=== PATIENT | female | born 2000 | race American Indian/Alaskan Native ===

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

== ENCOUNTER 2018-09-26 23:09 | Emergency (ER) | payer MEDICAID, OTHER ==
[2018-09-26 23:33] VITALS: BP 132/72
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
[2018-09-26 23:43] LABS: Basophils % (Auto) 0.4 % (0.0-1.8); Eosinophils # (Auto) 0.1 K/mm3 (0.0-0.4); Eosinophils % (Auto) 2.5 % (0.0-4.3); Hematocrit 37.4 % (30.3-42.9); Hemoglobin 12.5 gm/dl (10.1-14.3); Lymphocytes # (Auto) 2.3 K/mm3 (1.2-5.4); Lymphocytes % (Auto) 39.3 % (13.4-35.0); Mean Corpuscular HGB Conc 34 % (30-34); Mean Corpuscular Volume 91 fl (79-97); Monocytes # (Auto) 0.4 K/mm3 (0.0-0.8); Monocytes % (Auto) 7.2 % (0.0-7.3); Platelet Count 344 K/mm3 (140-440)
[2018-09-26 23:54] LABS: BUN/Creatinine Ratio 17; Blood Urea Nitrogen 12 mg/dL (7-17); Calcium 8.6 mg/dL (8.4-10.2); Hemolysis Index 2
[2018-09-27] MEDS ORDERED: TORADOL IM ONE (00:03)
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
== END 2018-09-27 02:32 | disposition home or self-care (01) ==
LOC: ED 23:09
DX: M54.5 Low back pain (principal); J45.909 Unspecified asthma, uncomplicated; F17.200 Nicotine dependence, unspecified, uncomplicated; F12.10 Cannabis abuse, uncomplicated; V89.2XXA Person injured in unspecified motor-vehicle accident, traffic, initial encounter; Y93.89 Activity, other specified; Y99.8 Other external cause status; Y92.410 Unspecified street and highway as the place of occurrence of the external cause
CPT/HCPCS: 36415; 72131; 80048; 84703; 85025; 96372; 99284; J1885

== ENCOUNTER 2019-10-17 20:54 | Outpatient (CLI) | payer MEDICAID ==
[2019-10-17] MEDS ORDERED: BUTALB/ACETAMINOPHEN/CAFFEINE TAB PO ONE (21:44)
[2019-10-17 21:58] VITALS: BP 129/61
== END 2019-10-17 22:15 | disposition home or self-care (01) ==
LOC: TRG 20:54
PROVIDERS: ATTEND Obstetrics & Gynecology
DX: O26.893 Other specified pregnancy related conditions, third trimester (principal); R51 Headache; Z3A.22 22 weeks gestation of pregnancy
CPT/HCPCS: 87400

== ENCOUNTER 2019-11-07 03:10 | Outpatient (CLI) | payer MEDICAID ==
[2019-11-07 05:13] VITALS: BP 138/64
== END 2019-11-07 05:10 | disposition home or self-care (01) ==
LOC: TRG 03:10
PROVIDERS: ATTEND Obstetrics & Gynecology
DX: O26.892 Other specified pregnancy related conditions, second trimester (principal); R10.9 Unspecified abdominal pain; R51 Headache; Z3A.25 25 weeks gestation of pregnancy

== ENCOUNTER 2019-11-26 14:12 | Outpatient (CLI) | payer MEDICAID ==
[2019-11-26 14:48] VITALS: BP 123/63
[2019-11-26] MEDS ORDERED: LACTATED RINGERS 1,000 ML IV SCH (15:00)
[2019-11-26] MEDS ORDERED: ACETAMINOPHEN 500 MG TAB PO ONE (15:30)
[2019-11-26 15:39] LABS: Bacteria,Urine 2+ /HPF (Negative); Bilirubin,Urine NEG (Negative); Blood,Urine NEG (Negative); Color,Urine Yellow (Yellow); Mucus,Urine FEW /HPF; Protein,Urine <15 mg/dL mg/dL (Negative); Urobilinogen,Urine < 2.0 mg/dL (<2.0)
== END 2019-11-26 16:44 | disposition home or self-care (01) ==
LOC: TRG 14:12
PROVIDERS: ATTEND Obstetrics & Gynecology
DX: O47.02 False labor before 37 completed weeks of gestation, second trimester (principal); Z3A.27 27 weeks gestation of pregnancy
CPT/HCPCS: 81001

== ENCOUNTER 2020-01-22 13:35 | Outpatient (CLI) | payer MEDICAID ==
[2020-01-25 11:59] VITALS: BP 108/56
== END 2020-01-22 16:33 | disposition home or self-care (01) ==
LOC: TRG 13:35 → APU 14:08 → TRG 16:33
PROVIDERS: ATTEND Obstetrics & Gynecology
DX: O26.893 Other specified pregnancy related conditions, third trimester (principal); N89.8 Other specified noninflammatory disorders of vagina; Z3A.35 35 weeks gestation of pregnancy
CPT/HCPCS: 59025

== ENCOUNTER 2020-01-26 16:02 | Outpatient (CLI) | payer MEDICAID ==
[2020-01-26 16:54] LABS: Hematocrit 33.7 % (30.3-42.9); Hemoglobin 11.5 gm/dl (10.1-14.3); Mean Corpuscular HGB Conc 34 % (30-34); Mean Corpuscular Volume 92 fl (79-97); Platelet Count 380 K/mm3 (140-440); Red Blood Count 3.68 M/mm3 (3.65-5.03); Red Cell Distribution Width 13.2 % (13.2-15.2)
[2020-01-26 17:12] LABS: Alanine Aminotransferase 11 units/L (7-56)
[2020-01-26] MEDS ORDERED: LACTATED RINGERS 1,000 ML IV ONE ×2 (18:21→19:30)
[2020-01-26] MEDS ORDERED: ACETAMINOPHEN 500 MG TAB PO ONE (18:21)
[2020-01-26] MEDS ORDERED: PROMETHAZINE 25 MG TAB PO ONE (18:28)
[2020-01-26 18:32] LABS: Bacteria,Urine 1+ /HPF (Negative); Bilirubin,Urine NEG (Negative); Blood,Urine NEG (Negative); Color,Urine Yellow (Yellow); Mucus,Urine 2+ /HPF; Protein,Urine <15 mg/dL mg/dL (Negative); Urobilinogen,Urine < 2.0 mg/dL (<2.0)
--- NOTE | 2020-01-26 18:43 | Event Note ---
Date: 01/26/20 (Elevated BP in office.) Pt is a 19 y.o. that was sent from the clinic d/t an elevated BP. First BP in the office 160/100, 2nd was 122/72. Pt also states that she had a GARCIA for 2 days and has not taken anything for it. BP's in triage 110's-130's/50-70's. Her Pre E labs were normal. Of note she is also having some tachycardia in the 110's. Most likely dehydration. I explained these findings to the patient and she stated that she was having some abdominal pain. Contractions palpated during this triage visit. Explained plan to given fluids and something for pain and sleep and she verbalized understanding. Her cervical exam is closed/thick/hi. Will discharge home if cervical exam remains the same. Will continue to monitor mothers HR while in triage and if they return to normal will send home, if she remains tachy will order EKG before sending home.
[2020-01-26 20:47] LABS: BUN/Creatinine Ratio 12; Blood Urea Nitrogen 6 mg/dL (7-17); Hemolysis Index 18
[2020-01-26 21:18] VITALS: BP 140/71
== END 2020-01-26 21:34 | disposition home or self-care (01) ==
LOC: TRG 16:02 → APU 16:02 → TRG 21:34
PROVIDERS: ATTEND Obstetrics & Gynecology
DX: O10.913 Unspecified pre-existing hypertension complicating pregnancy, third trimester (principal); O62.9 Abnormality of forces of labor, unspecified; O26.893 Other specified pregnancy related conditions, third trimester; R51 Headache; R10.9 Unspecified abdominal pain; R00.0 Tachycardia, unspecified; O99.513 Diseases of the respiratory system complicating pregnancy, third trimester; J45.909 Unspecified asthma, uncomplicated; Z3A.36 36 weeks gestation of pregnancy
CPT/HCPCS: 36415; 59025; 80048; 81001; 82565; 83615; 84450; 84460; 84550; 85027; 93005; 96360; J7120; Q0169

== ENCOUNTER 2020-02-06 23:07 | Inpatient (IN) | payer MEDICAID ==
[2020-02-06] MEDS ORDERED: LACTATED RINGERS 1,000 ML IV SCH (23:45)
[2020-02-06] MEDS ORDERED: OXYTOCIN 20 UNIT/1000ML DRIP 20 UNITS/1,000 ML BAG IV SCH (23:45)
[2020-02-06] MEDS ORDERED: OXYTOCIN DRIP 30 UNITS/500 ML BAG IV SCH ×2 (23:45)
--- NOTE | 2020-02-06 23:56 | History and Physical Report ---
History of Present Illness Date of examination: 02/06/20 (ctx and SROM) History of present illness: EDC Confirmation: 02/20/2020 Gestational Age: 9 2/7 weeks Past History : 2 Living Children: 0 Spont. Ab: 1 # 1 Delivery date: 08/14/2018 Delivery type: SAB Anesthesia type: none Past Medical History: Reviewed history and no changes required: Asthma: last used an inhaler February 2019 childhood asthma, never been intubated. Past Surgical History: Reviewed history and no changes required: negative Past Medical History Anesthesia Complications: negative Anemia: negative Autoimmune Disorder: negative Bleeding Disorder: negative Blood Transfusions: negative Breast Disease: negative Diabetes: negative Heart Disease: negative Hypertension: negative Hepatitis/Liver Disease: negative Kidney Disease/UTI: negative Neurologic/Epilepsy/Migraines: negative Phlebitis/Varicosities: negative Psychiatric: negative Pulmonary Disease/Asthma: negative Thyroid Disease: negative Hospitalizations: negative Surgery (Non-peripheral edp equipment operator): negative Abnormal PAP: negative RALF Exposure: negative Infertility: negative Uterine Anomaly: negative Uterine Surgery (not C/S): negative Other Gynecologic Problems: negative Infection History Hx of STD: none HIV Risk Eval: low risk Hepatitis B Risk Eval: low risk Personal hx. of genital herpes: no Partner hx. of genital herpes: no Rash, Viral, or Febrile illness since last LMP? no Varicella/Chicken Pox Status: Unknown TB Risk: no Genetic History Congenital Heart Defect: Mom: no Dad: unknown Anamaria Disease: Mom: no Dad: unknown Thalassemia Mom: no Dad: unknown Neural Tube Defect Mom: no Dad: unknown Down's Syndrome Mom: no Dad: unknown Domo-Sachs Mom: no Dad: unknown Sickle Cell Disease/Trait Mom: no Dad: unknown Hemophilia Mom: no Dad: unknown Muscular Dystrophy Mom: no Dad: unknown Cystic Fibrosis Mom: no Dad: unknown [place] Chorea Mom: no Dad: unknown Mental Retardation Mom: no Dad: unknown Fragile X Mom: no Dad: unknown Other Genetic/Chromosomal Disorder Mom: no Dad: unknown Child w/other defect Mom: no Dad: unknown Enviromental Exposures Xray Exposure: no Medication, drug, or alcohol use since LMP: no Chemical/Other Exposure: no Exposure to Cat Liter: no Hx of Parvovirus (Fifth Disease): no Occupational Exposure to Children: none Active Medications (reviewed today): None Current Allergies (reviewed today): * BENEDRYL (Critical) * SHELLFISH (Critical) Past History - Obstetrical History Expected Date of Delivery: 02/20/20 Actual Gestation: 38 Week(s) 1 Day(s) : 2 Para: 0 Hx # Term Pregnancies: 0 Number of Pregnancies: 0 Spontaneous Abortions: 1 Induced : 0 Number of Living Children: 0 Medications and Allergies Allergies Allergy/AdvReac Type Severity Reaction Status Date / Time diphenhydramine Allergy Severe Anaphylaxis Verified 02/06/20 23:28 [From Benadryl Allergy] Home Medications Medication Instructions Recorded Confirmed Last Taken Type HYDROcodone/APAP 5-325 [[place] 1 each PO Q6HR PRN #8 tablet 09/27/18 Unknown Rx 5/325] - Vital Signs Vital signs: Vital Signs Temp Pulse Resp BP 97.7 F 104 H 20 137/84 02/06/20 23:13 02/06/20 23:13 02/06/20 23:13 02/06/20 23:13 Temp Pulse Resp BP Pulse Ox 97.7 F 104 H 20 137/84 02/06/20 23:13 02/06/20 23:18 02/06/20 23:13 02/06/20 23:18 - Physical Exam Breasts: Positive: deferred Cardiovascular: Regular rate, Normal S1, Normal S2 Lungs: Positive: Clear to auscultation Abdomen: Positive: normal appearance, soft, normal bowel sounds. Negative: distention, tenderness Genitourinary (Female): Positive: normal external genitalia Vulva: both: normal Vagina: Positive: normal moisture. Negative: discharge Cervix: Negative: lesion, discharge Uterus: Positive: normal size, normal contour Adnexa: both: normal Anus/Rectum: Positive: normal perianal skin, heme negative. Negative: rectal mass, hemorrhoids Extremities: Deep Tendon Reflex Grade: Normal +2 - Obstetrical FHR: category 1 Uterine Contraction Monitor Mode: External Cervical Dilatation: 4.5 (SROM clear fluid) Cervical Effacement Percentage: 70 station: -1 Uterine Contraction Pattern: Irregular Uterine Tone Measurement Phase: Resting Uterine Contraction Intensity: Moderate Results All other labs normal. GBS Negative HBsAg Screen Negative Negative *1 RPR Non Reactive Non Reactive *2 Rubella Antibodies, IgG 1.65 index Immune >0.99 *3 Non-immune <0.90 Equivocal 0.90 - 0.99 Immune >0.99 ABO Grouping O *4 Rh Factor Positive *5 Please note: Prior records for this patient's ABO / Rh type are not available for additional verification. Antibody Screen Negative Negative *6 WBC 10.0 x10E3/uL 3.4-10.8 *7 RBC 4.09 x10E6/uL 3.77-5.28 *8 Hemoglobin 12.5 g/dL 11.1-15.9 *9 Hematocrit 39.0 % 34.0-46.6 *10 MCV 95 fL 79-97 *11 MCH 30.6 pg 26.6-33.0 *12 MCHC 32.1 g/dL 31.5-35.7 *13 RDW 13.4 % 12.3-15.4 *14 Effective September 20, 2019, the RDW pediatric reference interval will be removed and the adult reference interval will be changing to: Female 11.7 - 15.4 Male 11.6 - 15.4 Platelets 285 x10E3/uL 150-450 *15 Neutrophils 74 % Not Estab. *16 Lymphs 21 % Not Estab. *17 Monocytes 3 % Not Estab. *18 Eos 2 % Not Estab. *19 Basos 0 % Not Estab. *20 ! Immature Cells <No Reported Value> *21 Neutrophils (Absolute) [H] 7.4 x10E3/uL 1.4-7.0 *22 Lymphs (Absolute) 2.1 x10E3/uL 0.7-3.1 *23 Monocytes(Absolute) 0.3 x10E3/uL 0.1-0.9 *24 Eos (Absolute) 0.2 x10E3/uL 0.0-0.4 *25 Baso (Absolute) 0.0 x10E3/uL 0.0-0.2 *26 ! Immature Granulocytes 0 % Not Estab. *27 ! Immature Grans (Abs) 0.0 x10E3/uL 0.0-0.1 *28 ! NRBC <No Reported Value> *29 Hematology Comments: <No Reported Value> *30 Tests: (2) 688580 7+Alc-Unbund (328885) ! Amphetamines, Urine Negative ng/mL Xqngfr=4629 *31 Amphetamine test includes Amphetamine and Methamphetamine. Barbiturate Negative ng/mL Cibxhb=400 *32 Benzodiazepines Negative ng/mL Fvhovg=642 *33 Cannabinoid See Final Results ng/mL Cutoff=50 *34 Tests: (3) Cannabinoid Confirmation, Ur (237243) ! Cannabinoid [A] Positive Cutoff=50 *35 ! Carboxy THC GC/MS Conf 148 ng/mL Cutoff=15 *36 Tests: (4) 531659 7+Alc-Unbund (885330) ! Cocaine (Metab.) Negative ng/mL Wbedhl=303 *37 Opiates Negative ng/mL Xgkjud=970 *38 Opiate test includes Codeine and Morphine only. Phencyclidine Negative ng/mL Cutoff=25 *39 ! Ethanol, Urine Negative % Cutoff=0.020 *40 Tests: (5) HB Solu + Rflx Fra (057529) Hemoglobin (Hgb) Solubility Negative Negative *41 Tests: (6) Panel 534359 ([id number]) HIV Screen 4th Generation wRfx Non Reactive Non Reactive *42 Tests: (7) HCV Ab w/Rflx to Verification (347839) ! HCV Ab <0.1 s/co ratio 0.0-0.9 *43 Tests: (8) Comment: (015093) ! Comment: SPRCS *44 Non reactive HCV antibody screen is consistent with no HCV infection, unless recent infection is suspected or other evidence exists to indicate HCV infection. Tests: (9) Urine Culture, Routine (978581) Urine Culture, Routine Final report *45 Tests: (10) Result (262093) ! Result 1 No growth *46 Assessment and Plan 19yo @ 38 weeks Ctx and SROM clear fluid GBS negative Orders in EMR. Anticipate delivery
[2020-02-06] MEDS ORDERED: MINERAL OIL 30 ML ORAL LIQD PO PRN (23:58)
[2020-02-06] MEDS ORDERED: fentaNYL 100 MCG/2 ML INJ IV PRN (23:58)
[2020-02-06] MEDS ORDERED: TERBUTALINE 1 MG/1 ML INJ SUB-Q PRN (23:58)
[2020-02-06] MEDS ORDERED: LIDOCAINE (2%) 20 MG/1 ML VIAL 20 ML MDV INFILTRATI ONE (23:58)
[2020-02-06] MEDS ORDERED: ePHEDrine SULFATE 50 MG/1 ML INJ IV PRN (23:58)
[2020-02-06] MEDS ORDERED: ONDANSETRON 4 MG/2 ML INJ IV PRN (23:58)
[2020-02-07 00:32] LABS: Hematocrit 34.6 % (30.3-42.9); Hemoglobin 11.5 gm/dl (10.1-14.3); Mean Corpuscular HGB Conc 33 % (30-34); Mean Corpuscular Volume 91 fl (79-97); Platelet Count 339 K/mm3 (140-440); Red Blood Count 3.79 M/mm3 (3.65-5.03); Red Cell Distribution Width 13.4 % (13.2-15.2)
[2020-02-07 00:51] LABS: Amphetamine Screen,Urine PRESUMPTIVE NEGATIVE; Benzodiazepines Screen,Urine PRESUMPTIVE NEGATIVE; Cannabinoid Screen,Urine PRESUMPTIVE NEGATIVE; Cocaine Screen,Urine PRESUMPTIVE NEGATIVE; Methadone Screen,Urine PRESUMPTIVE NEGATIVE; Opiate Screen,Urine PRESUMPTIVE NEGATIVE
--- NOTE | 2020-02-07 01:22 | Event Note ---
Date: 02/07/20 (pt c/o out with bad urge to defecate) SVE 4-5,90,-1 P allowed OOB to toilet
--- NOTE | 2020-02-07 02:20 | Progress Note ---
Assessment and Plan pt called out c/o increased pain. SVE 6,100,-1 Internals placed Tachysystole Pit off Fentanyl given Bolus for epidural Will re-eval after epidural - Patient Problems (1) Essential hypertension Onset Date: ~02/07/20 Current Visit: Yes Status: Acute Plan to address problem: PIH labs ordered. Pt denies GARCIA, blurred vision, chest pain. Subjective - Subjective Date of service: 02/07/20 (pt req epidural) Principal diagnosis: IUP@38w Interval history: EDC Confirmation: 02/20/2020 Gestational Age: 9 2/7 weeks Past History : 2 Living Children: 0 Spont. Ab: 1 # 1 Delivery date: 08/14/2018 Delivery type: SAB Anesthesia type: none Past Medical History: Reviewed history and no changes required: Asthma: last used an inhaler February 2019 childhood asthma, never been intubated. Past Surgical History: Reviewed history and no changes required: negative Past Medical History Anesthesia Complications: negative Anemia: negative Autoimmune Disorder: negative Bleeding Disorder: negative Blood Transfusions: negative Breast Disease: negative Diabetes: negative Heart Disease: negative Hypertension: negative Hepatitis/Liver Disease: negative Kidney Disease/UTI: negative Neurologic/Epilepsy/Migraines: negative Phlebitis/Varicosities: negative Psychiatric: negative Pulmonary Disease/Asthma: negative Thyroid Disease: negative Hospitalizations: negative Surgery (Non-wallpaperer helper): negative Abnormal PAP: negative RALF Exposure: negative Infertility: negative Uterine Anomaly: negative Uterine Surgery (not C/S): negative Other Gynecologic Problems: negative Infection History Hx of STD: none HIV Risk Eval: low risk Hepatitis B Risk Eval: low risk Personal hx. of genital herpes: no Partner hx. of genital herpes: no Rash, Viral, or Febrile illness since last LMP? no Varicella/Chicken Pox Status: Unknown TB Risk: no Genetic History Congenital Heart Defect: Mom: no Dad: unknown Anamaria Disease: Mom: no Dad: unknown Thalassemia Mom: no Dad: unknown Neural Tube Defect Mom: no Dad: unknown Down's Syndrome Mom: no Dad: unknown Domo-Sachs Mom: no Dad: unknown Sickle Cell Disease/Trait Mom: no Dad: unknown Hemophilia Mom: no Dad: unknown Muscular Dystrophy Mom: no Dad: unknown Cystic Fibrosis Mom: no Dad: unknown [place] Chorea Mom: no Dad: unknown Mental Retardation Mom: no Dad: unknown Fragile X Mom: no Dad: unknown Other Genetic/Chromosomal Disorder Mom: no Dad: unknown Child w/other defect Mom: no Dad: unknown Enviromental Exposures Xray Exposure: no Medication, drug, or alcohol use since LMP: no Chemical/Other Exposure: no Exposure to Cat Liter: no Hx of Parvovirus (Fifth Disease): no Occupational Exposure to Children: none Active Medications (reviewed today): None Current Allergies (reviewed today): * BENEDRYL (Critical) * SHELLFISH (Critical) Patient reports: movement normal, contractions Objective - Vital Signs Vital Signs: Vital Signs - 12hr 02/06/20 02/06/20 02/07/20 23:13 23:18 01:36 Temperature 97.7 F Pulse Rate 104 H 104 H 96 H Respiratory 20 Rate Blood Pressure 137/84 138/93 Blood Pressure 137/84 [Right] 02/07/20 02:06 Temperature Pulse Rate 110 H Respiratory Rate Blood Pressure 133/89 Blood Pressure [Right] - Exam Breasts: deferred Cardiovascular: Regular rate Lungs: Normal air movement Abdomen: Present: normal appearance, soft. Absent: distention, tenderness Uterus: Present: normal FHR: auscultation normal, category 1 Uterine Contraction Monitor Mode: Internal Cervical Dilatation: 6 (caput) Cervical Effacement Percentage: 100 (internals placed) station: -1 Uterine Contraction Frequency (min): q1-2 Uterine Contraction Duration: 40 Uterine Contraction Pattern: Regular Uterine Tone Measurement Phase: Resting Uterine Contraction Intensity: Moderate Extremities: edema Deep Tendon Reflex Grade: Normal +2 - Labs Labs: Laboratory Results - last 24 hr 02/06/20 02/06/20 02/06/20 23:10 23:50 23:50 WBC 9.8 RBC 3.79 Hgb 11.5 Hct 34.6 MCV 91 MCH 30 MCHC 33 RDW 13.4 Plt Count 339 Urine Opiates Screen Presumptive negative Urine Methadone Screen Presumptive negative Ur Barbiturates Screen Presumptive negative Ur Phencyclidine Scrn Presumptive negative Ur Amphetamines Screen Presumptive negative U Benzodiazepines Scrn Presumptive negative Urine Cocaine Screen Presumptive negative U Marijuana (THC) Screen Presumptive negative Drugs of Abuse Note Disclamer Blood Type O POSITIVE
[2020-02-07 02:39] LABS: Alanine Aminotransferase 9 units/L (7-56)
--- NOTE | 2020-02-07 03:58 | Anesthesia Consultation ---
Anesthesia Consult and Med Hx Date of service: 02/07/20 - Airway Anesthetic Teeth Evaluation: Poor ROM Head & Neck: Adequate Mental/Hyoid Distance: Adequate Mallampati Class: Class III Intubation Access Assessment: Probably Good - Pulmonary Exam CTA: Yes - Cardiac Exam Cardiac Exam: RRR - Pre-Operative Health Status ASA Pre-Surgery Classification: ASA3 Proposed Anesthetic Plan: Epidural - Pulmonary Hx Smoking: No Hx Asthma: Yes (albuterol inhaler, last use before ) Hx Respiratory Symptoms: No SOB: No COPD: No Home Oxygen Therapy: No Hx Pneumonia: No Hx Sleep Apnea: No - Cardiovascular System Hx Hypertension: Yes Hx Coronary Artery Disease: No Hx Heart Attack/AMI: No Hx Angina: No Hx Percutaneous Transluminal Coronary Angioplasty (PTCA): No Hx Cardia Arrhythmia: No Hx Pacemaker: No Hx Internal Defibrillator: No Hx Valvular Heart Disease: No Hx Heart Murmur: No Hx Peripheral Vascular Disease: No - Central Nervous System Hx Neuromuscular Disorder: No Hx Seizures: No CVA: No Hx Back Pain: Yes Hx Psychiatric Problems: No - Gastrointestinal Hx Ulcer: No Hx Gastroesophageal Reflux Disease: Yes - Endocrine Hx Renal Disease: No Hx End Stage Renal Disease: No Hx Cirrhosis: No Hx Liver Disease: No Hx Insulin Dependent Diabetes: No Hx Non-Insulin Dependent Diabetes: No Hx Thyroid Disease: No Hx Hypothyroidism: No Hx Hyperthyroidism: No - Hematic Hx Anemia: No Hx Sickle Cell Disease: No - Other Systems Hx Alcohol Use: No Hx Substance Use: No Hx Cancer: Yes
--- NOTE | 2020-02-07 03:59 | Progress Note ---
Labor Epidural - Labor Epidural Start Time: 03:30 Stop Time: 03:42 Performed by:: ELIA VICK Procedure: Patient is requesting combined spinal epidural for labor and pain. H&P, labs were reviewed. All questions and concerns were answered. Informed consent was obtained. Timeout performed. Patient in sitting position on side of bed. Sterile prep and drape was performed. [3] mL 1% lidocaine skin wheal at L [3]-L [4]. 18-gauge Touhy epidural needle advanced to [id number] using air technique, [8cm]. 27-gauge spinal needle advanced [clear positive free- flowing] CSF. spinal dose of [Precedex 10 mcg]. Epidural catheter advanced to [12] cm. [Negative] Aspiration, [negative] test dose. Sterile dressing applied. Patient tolerated procedure well.
[2020-02-07] MEDS ORDERED: fentaNYL-BUPIV 2 MCG/ML-0.125% 200 MCG/100 ML BAG EPIDURAL ONE (05:23)
[2020-02-07] MEDS ORDERED: DEXMEDETOMIDINE 200 MCG/2 ML VIAL IV ONE ×3 (05:25→08:17)
[2020-02-07] MEDS ORDERED: NALOXONE 2 MG/2 ML INJ IV PRN (05:26)
[2020-02-07] MEDS ORDERED: ePHEDrine SULFATE 50 MG/1 ML INJ IV PRN (05:26)
[2020-02-07] MEDS ORDERED: BUPIVACAINE/PF (0.25%) 2.5 MG/ML 10 ML VIAL INFILTRATI ONE (05:31)
[2020-02-07] MEDS ORDERED: fentaNYL-BUPIV 2 MCG/ML-0.125% 200 MCG/100 ML BAG EPIDURAL SCH (06:00)
[2020-02-07] MEDS ORDERED: METOCLOPRAMIDE 10 MG/2 ML INJ IV ONE (06:55)
[2020-02-07] MEDS ORDERED: BICITRA ORAL LIQD 30ML PO ONE (06:55)
[2020-02-07] MEDS ORDERED: FAMOTIDINE 20 MG/2 ML INJ IV ONE (06:55)
--- NOTE | 2020-02-07 06:55 | Progress Note ---
Assessment and Plan No cervical chg X several hours Cat 2 strip variable decels. Operative intervention exp to pt. All questions addressed. Risk of damage to surrounding organs need for transfusion and c/s with future pregnancies. Consents signed. Dr Rufus beatty. All orders in chart - Patient Problems (1) Essential hypertension Onset Date: ~02/07/20 Current Visit: Yes Status: Acute Subjective - Subjective Date of service: 02/07/20 (variable decel noted) Principal diagnosis: IUP@38w Interval history: EDC Confirmation: 02/20/2020 Gestational Age: 9 2/7 weeks Past History : 2 Living Children: 0 Spont. Ab: 1 # 1 Delivery date: 08/14/2018 Delivery type: SAB Anesthesia type: none Past Medical History: Reviewed history and no changes required: Asthma: last used an inhaler February 2019 childhood asthma, never been intubated. Past Surgical History: Reviewed history and no changes required: negative Past Medical History Anesthesia Complications: negative Anemia: negative Autoimmune Disorder: negative Bleeding Disorder: negative Blood Transfusions: negative Breast Disease: negative Diabetes: negative Heart Disease: negative Hypertension: negative Hepatitis/Liver Disease: negative Kidney Disease/UTI: negative Neurologic/Epilepsy/Migraines: negative Phlebitis/Varicosities: negative Psychiatric: negative Pulmonary Disease/Asthma: negative Thyroid Disease: negative Hospitalizations: negative Surgery (Non-bonded strand operator): negative Abnormal PAP: negative RALF Exposure: negative Infertility: negative Uterine Anomaly: negative Uterine Surgery (not C/S): negative Other Gynecologic Problems: negative Infection History Hx of STD: none HIV Risk Eval: low risk Hepatitis B Risk Eval: low risk Personal hx. of genital herpes: no Partner hx. of genital herpes: no Rash, Viral, or Febrile illness since last LMP? no Varicella/Chicken Pox Status: Unknown TB Risk: no Genetic History Congenital Heart Defect: Mom: no Dad: unknown [place] Disease: Mom: no Dad: unknown Thalassemia Mom: no Dad: unknown Neural Tube Defect Mom: no Dad: unknown Down's Syndrome Mom: no Dad: unknown Domo-Sachs Mom: no Dad: unknown Sickle Cell Disease/Trait Mom: no Dad: unknown Hemophilia Mom: no Dad: unknown Muscular Dystrophy Mom: no Dad: unknown Cystic Fibrosis Mom: no Dad: unknown [place] Chorea Mom: no Dad: unknown Mental Retardation Mom: no Dad: unknown Fragile X Mom: no Dad: unknown Other Genetic/Chromosomal Disorder Mom: no Dad: unknown Child w/other defect Mom: no Dad: unknown Enviromental Exposures Xray Exposure: no Medication, drug, or alcohol use since LMP: no Chemical/Other Exposure: no Exposure to Cat Liter: no Hx of Parvovirus (Fifth Disease): no Occupational Exposure to Children: none Active Medications (reviewed today): None Current Allergies (reviewed today): * BENEDRYL (Critical) * SHELLFISH (Critical) Patient reports: movement normal, contractions Objective - Vital Signs Vital Signs: Vital Signs - 12hr 02/06/20 02/06/20 02/07/20 23:13 23:18 01:36 Temperature 97.7 F Pulse Rate 104 H 104 H 96 H Respiratory 20 Rate Blood Pressure 137/84 138/93 Blood Pressure 137/84 [Right] O2 Sat by Pulse Oximetry 02/07/20 02/07/20 02/07/20 02:06 02:37 03:07 Temperature Pulse Rate 110 H 95 H 110 H Respiratory Rate Blood Pressure 133/89 138/58 Blood Pressure [Right] O2 Sat by Pulse 98 Oximetry 02/07/20 02/07/20 02/07/20 03:08 03:12 03:17 Temperature Pulse Rate 115 H 119 H 121 H Respiratory Rate Blood Pressure 122/61 Blood Pressure [Right] O2 Sat by Pulse 100 99 Oximetry 02/07/20 02/07/20 02/07/20 03:22 03:27 03:28 Temperature Pulse Rate 117 H 125 H Respiratory Rate Blood Pressure Blood Pressure [Right] O2 Sat by Pulse 100 100 88 Oximetry 02/07/20 02/07/20 02/07/20 03:29 03:32 03:33 Temperature Pulse Rate 121 H 109 H 122 H Respiratory Rate Blood Pressure 136/72 135/84 Blood Pressure [Right] O2 Sat by Pulse 95 Oximetry 02/07/20 02/07/20 02/07/20 03:35 03:37 03:38 Temperature Pulse Rate 119 H 114 H Respiratory Rate Blood Pressure 132/93 129/80 Blood Pressure [Right] O2 Sat by Pulse 99 Oximetry 02/07/20 02/07/20 02/07/20 03:41 03:42 03:47 Temperature Pulse Rate 107 H 114 H 98 H Respiratory Rate Blood Pressure Blood Pressure [Right] O2 Sat by Pulse 84 99 91 Oximetry 05/02/07/20 02/07/20 03:50 03:52 03:56 Temperature Pulse Rate 113 H 123 H 134 H Respiratory Rate Blood Pressure 126/58 117/57 Blood Pressure [Right] O2 Sat by Pulse 100 Oximetry 02/07/20 02/07/20 02/07/20 03:57 03:59 04:02 Temperature Pulse Rate 125 H 111 H 110 H Respiratory Rate Blood Pressure 107/50 99/48 Blood Pressure [Right] O2 Sat by Pulse 99 99 Oximetry 02/07/20 02/07/20 02/07/20 04:04 04:05 04:07 Temperature Pulse Rate 114 H 114 H 106 H Respiratory Rate Blood Pressure 95/47 125/58 Blood Pressure [Right] O2 Sat by Pulse 99 Oximetry 02/07/20 02/07/20 02/07/20 04:08 04:11 04:12 Temperature Pulse Rate 109 H 105 H 109 H Respiratory Rate Blood Pressure 111/56 110/50 Blood Pressure [Right] O2 Sat by Pulse 100 Oximetry 02/07/20 02/07/20 02/07/20 04:14 04:17 04:20 Temperature Pulse Rate 104 H 109 H 109 H Respiratory Rate Blood Pressure 117/57 131/66 128/65 Blood Pressure [Right] O2 Sat by Pulse 99 94 Oximetry 02/07/20 02/07/20 02/07/20 04:22 04:23 04:27 Temperature Pulse Rate 110 H 115 H 105 H Respiratory Rate Blood Pressure 124/67 Blood Pressure [Right] O2 Sat by Pulse 100 100 Oximetry 02/07/20 02/07/20 02/07/20 04:32 04:37 04:42 Temperature Pulse Rate 103 H 105 H 112 H Respiratory Rate Blood Pressure Blood Pressure [Right] O2 Sat by Pulse 100 100 99 Oximetry 02/07/20 02/07/20 02/07/20 04:47 04:52 04:55 Temperature Pulse Rate 105 H 110 H 104 H Respiratory Rate Blood Pressure 134/72 Blood Pressure [Right] O2 Sat by Pulse 100 100 Oximetry 02/07/20 02/07/20 02/07/20 04:57 05:02 05:03 Temperature Pulse Rate 114 H 112 H 113 H Respiratory Rate Blood Pressure Blood Pressure [Right] O2 Sat by Pulse 96 97 91 Oximetry 05/25/20 05/25/20 05/25/20 05:07 05:10 05:12 Temperature Pulse Rate 104 H 105 H 45 L Respiratory Rate Blood Pressure Blood Pressure [Right] O2 Sat by Pulse 100 86 87 Oximetry 02/07/20 02/07/20 02/07/20 05:15 05:17 05:25 Temperature Pulse Rate 120 H 109 H 111 H Respiratory Rate Blood Pressure 110/63 Blood Pressure [Right] O2 Sat by Pulse 85 99 Oximetry 02/07/20 02/07/20 02/07/20 05:34 05:56 06:02 Temperature Pulse Rate 126 H 122 H 103 H Respiratory Rate Blood Pressure 110/72 139/75 139/70 Blood Pressure [Right] O2 Sat by Pulse Oximetry 02/07/20 06:24 Temperature Pulse Rate 102 H Respiratory Rate Blood Pressure 133/60 Blood Pressure [Right] O2 Sat by Pulse Oximetry - Exam Breasts: deferred Cardiovascular: Regular rate Lungs: Clear to auscultation Abdomen: Present: normal appearance, soft. Absent: distention, tenderness Uterus: Present: normal FHR: auscultation normal, category 2 Uterine Contraction Monitor Mode: Internal Cervical Dilatation: 8 Cervical Effacement Percentage: 100 station: -1 Uterine Contraction Pattern: Regular Uterine Tone Measurement Phase: Resting Uterine Contraction Intensity: Moderate Extremities: edema Deep Tendon Reflex Grade: Normal +2 - Labs Labs: Abnormal Labs 02/07/20 00:00 Creatinine 0.5 L Lactate Dehydrogenase 220 H Laboratory Results - last 24 hr 02/06/20 02/06/20 02/06/20 23:10 23:50 23:50 WBC 9.8 RBC 3.79 Hgb 11.5 Hct 34.6 MCV 91 MCH 30 MCHC 33 RDW 13.4 Plt Count 339 Creatinine Estimated GFR Uric Acid AST ALT Lactate Dehydrogenase Urine Opiates Screen Presumptive negative Urine Methadone Screen Presumptive negative Ur Barbiturates Screen Presumptive negative Ur Phencyclidine Scrn Presumptive negative Ur Amphetamines Screen Presumptive negative U Benzodiazepines Scrn Presumptive negative Urine Cocaine Screen Presumptive negative U Marijuana (THC) Screen Presumptive negative Drugs of Abuse Note Disclamer Blood Type O POSITIVE Antibody Screen Negative 02/07/20 00:00 WBC RBC Hgb Hct MCV MCH MCHC RDW Plt Count Creatinine 0.5 L Estimated GFR > 60 Uric Acid 4.0 AST 14 ALT 9 Lactate Dehydrogenase 220 H Urine Opiates Screen Urine Methadone Screen Ur Barbiturates Screen Ur Phencyclidine Scrn Ur Amphetamines Screen U Benzodiazepines Scrn Urine Cocaine Screen U Marijuana (THC) Screen Drugs of Abuse Note Blood Type Antibody Screen
[2020-02-07] MEDS ORDERED: ceFAZolin/Water 2 GM/20 ML 2 GM/20 ML SYRINGE IV NR (07:00)
[2020-02-07] MEDS ORDERED: OXYTOCIN 20 UNIT/1000ML DRIP 20 UNITS/1,000 ML BAG IV SCH ×2 (07:00→11:35)
[2020-02-07] MEDS ORDERED: LACTATED RINGERS 1,000 ML IV SCH (07:00)
[2020-02-07 07:04] LABS: Bilirubin,Urine NEG (Negative); Blood,Urine NEG (Negative); Color,Urine Yellow (Yellow); Mucus,Urine 3+ /HPF; Protein,Urine <15 mg/dL mg/dL (Negative); Urobilinogen,Urine < 2.0 mg/dL (<2.0)
[2020-02-07] MEDS ORDERED: BUPIVACAINE/PF (0.5%) 5 MG/1 ML 30 ML VIAL INFILTRATI ONE (07:54)
[2020-02-07] MEDS ORDERED: dexAMETHasone 20 MG/5 ML VIAL ONE (07:54)
[2020-02-07] MEDS ORDERED: KETOROLAC 30 MG/1 ML INJ ONE (07:54)
[2020-02-07] MEDS ORDERED: LIDOCAINE 2%/EPINEPHRINE 1:200,000 VIAL (20 ML) INFILTRATI ONE (07:54)
[2020-02-07] MEDS ORDERED: WATER FOR IRRIG STERILE 1,500 ML BOTTLE IR ONE (08:00)
[2020-02-07] MEDS ORDERED: SODIUM CHLORIDE 0.9% IRR 1,500 ML BOTTLE IR ONE (08:00)
[2020-02-07] MEDS ORDERED: ceFAZolin/STERILE WATER 2 GM/20 ML SYRINGE IV ONE (08:00)
[2020-02-07] MEDS ORDERED: OXYTOCIN 10 UNIT/1 ML INJ ONE (08:24)
[2020-02-07] MEDS ORDERED: TRANEXAMIC ACID 1,000 MG/10 ML ONE (08:24)
--- NOTE | 2020-02-07 09:37 | Post Anesthesia Evaluation ---
- Post Anesthesia Evaluation Patient Participated: Yes Airway Patent: Yes Stable Respiratory Function: Yes Nausea/Vomiting: No Temp > 96.8F: Yes Pain Manageable: Yes Adequeate Hydration: Yes Anesthesia Complications: No Block Receding Appropriately: Yes
--- NOTE | 2020-02-07 10:01 | Operative Report ---
Operative Report Operative Report: Date of procedure: February 07, 2020 Pre-operative diagnosis: Intrauterine at 38 weeks with arrest of d escent and arrest of dilatation. Body mass index 47 history of chronic hypertension Post-operative diagnosis: Same Procedure name(s): Primary low transverse section Surgeon: Usman Hooper MD Nursery Worker: LOLI Anesthesia: Epidural EBL: 600 cc Complications: None Findings: Patient with a normal uterus tubes and ovaries bilaterally. Female infant weight 7 pounds 12 ounces Apgars 4 at 1 minute and 8 at 5 minutes Specimen(s): None Indications: Patient with arrest of labor arrest noted earlier. Patient informed the risks of the surgery include bleeding possibly bleeding heavy enough to require blood transfusion, infection possible damage to bowel bladder ureter. All questions answered. Patient agrees to proceed Procedure: The patient was brought to the operating room. Her epidural was dosed was placed without any complications. She was then placed in left lateral tilt. Prepped and draped in the usual sterile manner. After testing for adequate anesthesia level, a Pfannenstiel incision was made. This incision was taken down to the fascia. The fascia was then nicked in the midline. This incision was extended out laterally with Beatty scissors. The fascia was then sharply and bluntly from the underlying rectus muscles. The rectus muscles were bluntly and sharply . The peritoneum was then entered with the cylinder machine operator pulp drier's fingers. This incision was spread vertically with care not to damage the bladder below. The Teddy self-retaining tractor was then placed without any difficulty. The bladder flap was then formed sharply and bluntly with Metzenbaum scissors. A transverse incision was made in lower uterine segment. This incision was extended laterally with the operators fingers. The amniotic sac was then entered bluntly with the cylinder machine operator pulp drier's fingers. The was delivered from the vertex position. Bulb suction on the mother's abdomen. Cord was double clamped and cut. The infant was then passed to the nursery personnel who were in attendance. The above scores were given by the nursery personnel. The placenta was then bluntly removed. The uterus was then externalized and wiped clean the remaining products. The uterine incision was closed in layers. The first incision was closed in a locking manner using 0 Vicryl. This was followed by imbricating stitch also with 0 Vicryl. This closure was hemostatic. The bladder flap was copiously irrigated and found to be hemostatic. The pelvis was copiously irrigated and found to be hemostatic. The uterus was then placed back to the patient's abdomen. The retractors were removed. The rectus muscles were inspected and found to be hemostatic. The fascia was then closed in a running manner using 0 Vicryl. This incision was hemostatic irrigation Bovie. The skin was reapproximated with 4-0 Vicryl subcuticularly. Dermabond was placed over the incision. The patient tolerated procedure well. Her urine was slightly blood tinged as it was prior to beginning of the procedure. The was admitted to the well baby nursery. The patient was accompanied to recovery room in good condition. Instrument count correct times 3.
[2020-02-07] MEDS: ARFORMOTEROL 15 MCG/2 ML NEBU IH SCH (10:46)
[2020-02-07] MEDS: BUDESONIDE 0.5 MG/2 ML NEBU IH SCH (10:46)
[2020-02-07] MEDS ORDERED: D5W/LACTATED RINGERS 1,000 ML IV SCH (11:35)
[2020-02-07] MEDS ORDERED: NALOXONE 0.4 MG/1 ML INJ IV PRN (11:35)
[2020-02-07] MEDS ORDERED: SIMETHICONE 80 MG CHEW TAB PO PRN (11:35)
[2020-02-07] MEDS ORDERED: LANOLIN/ZINC/DIMETHICONE (LANSINOH) 7 GM TP PRN (11:35)
[2020-02-07] MEDS ORDERED: WITCH HAZEL/ GLYCERIN PAD TP PRN (11:35)
[2020-02-07] MEDS: KETOROLAC 30 MG/1 ML INJ IV SCH ×2 (12:00→17:45)
[2020-02-07] MEDS: ceFAZolin/NS 1 GM/50 ML 1 GM/50 ML BAG IV SCH (16:16)
[2020-02-07] MEDS: HYDROcodone/ACETAMINOPHEN 5-325 MG TAB PO PRN (21:14)
[2020-02-07] MEDS ORDERED: MAGNESIUM HYDROXIDE (MOM) ORAL LIQD UDC PO PRN (22:00)
[2020-02-07 23:06] LABS: Hematocrit 31.6 % (30.3-42.9); Hemoglobin 10.5 gm/dl (10.1-14.3)
[2020-02-08] MEDS: ceFAZolin/NS 1 GM/50 ML 1 GM/50 ML BAG IV SCH
[2020-02-08] MEDS: HYDROcodone/ACETAMINOPHEN 5-325 MG TAB PO PRN ×4 (02:52→20:42)
[2020-02-08] MEDS: KETOROLAC 30 MG/1 ML INJ IV SCH (02:57)
[2020-02-08] MEDS ORDERED: ALBUTEROL 2.5 MG/3 ML NEBU IH ONE (03:23)
[2020-02-08] MEDS ORDERED: ALBUTEROL 2.5 MG/3 ML NEBU IH PRN (03:25)
--- NOTE | 2020-02-08 08:13 | Progress Note ---
Assessment and Plan patient resting with in arms, no complaints. Incision D&I. afebrile, b/p's 113-142/60-80's. H&H 30.5/31.6. lochia scant, fundus firm - Patient Problems (1) delivery delivered Current Visit: Yes Status: Acute Plan to address problem: continue postop pathway advance diet and activity as tolerated today anticipate d/c home tomorrow. (2) Essential hypertension Onset Date: ~02/07/20 Current Visit: Yes Status: Acute Plan to address problem: b/p's mostly normal at this time w/o medication continue to monitor closely Subjective - Subjective Date of service: 02/08/20 Principal diagnosis: postop day #1 s/p primary c/s Patient reports: appetite normal, voiding normally, pain well controlled, flatus, ambulating normally, no dizzy ambulation, no nauseated [place]: doing well, bottle feeding Objective - Vital Signs Latest vital signs: Vital Signs Temp Pulse Pulse Resp Resp BP BP 02/08/20 03:45 90 20 02/08/20 00:03 97.9 F 97 H 18 128/70 128/70 02/07/20 19:58 97.9 F 89 21 139/82 02/07/20 17:45 20 02/07/20 15:50 98.1 F 90 20 131/73 02/07/20 11:39 97.7 F 98 H 19 113/69 02/07/20 11:00 85 21 142/80 02/07/20 10:49 100 H 18 02/07/20 10:45 82 22 132/86 02/07/20 10:30 82 23 136/84 02/07/20 10:15 83 136/80 02/07/20 10:00 97.9 F 87 21 134/80 02/07/20 09:45 84 21 136/79 02/07/20 09:30 87 20 135/80 02/07/20 09:25 85 21 138/80 02/07/20 09:20 84 21 125/74 02/07/20 09:15 97.7 F 85 21 117/71 Pulse Ox 02/08/20 03:45 98 02/08/20 00:03 98 02/07/20 19:58 100 02/07/20 17:45 02/07/20 15:50 98 02/07/20 11:39 98 02/07/20 11:00 98 02/07/20 10:49 02/07/20 10:45 97 02/07/20 10:30 98 02/07/20 10:15 96 02/07/20 10:00 96 02/07/20 09:45 97 02/07/20 09:30 99 02/07/20 09:25 99 02/07/20 09:20 100 02/07/20 09:15 98 Intake and Output 02/07/20 02/08/20 02/08/20 23:59 07:59 15:59 Intake Total 410 300 Output Total 300 Balance 110 300 Intake: IV 50 ANCEF/NS 1 GM/50 ML 1 gm 50 In 50 ml @ 100 mls/hr IV Q8H [facility] Rx#:[id number] Oral 360 300 Output: Urine 300 Indwelling Catheter 300 Other: Total, Intake Amount 360 300 Total, Output Amount 300 # Voids Void 3 - Exam Breasts: Present: normal Cardiovascular: Present: Regular rate Lungs: Present: Clear to auscultation, Normal air movement Abdomen: Present: normal appearance, soft Vulva: both: normal Uterus: Present: normal, firm, fundal height at umbilicus Extremities: Present: normal Deep Tendon Reflex Grade: Normal +2 Incision: Present: normal, dry, intact
[2020-02-08] MEDS: PRENATAL VIT27-FE FUMARATE-FOLIC ACID VIT TAB PO SCH (09:35)
[2020-02-08] MEDS: FERROUS SULFATE 325 MG TAB PO SCH (09:35)
[2020-02-08] MEDS: IBUPROFEN 800 MG TAB PO PRN (09:36)
[2020-02-08] MEDS: BUDESONIDE 0.5 MG/2 ML NEBU IH SCH ×3 (10:07→13:47)
[2020-02-08] MEDS: ARFORMOTEROL 15 MCG/2 ML NEBU IH SCH ×3 (10:07→13:47)
[2020-02-09] MEDS: HYDROcodone/ACETAMINOPHEN 5-325 MG TAB PO PRN ×4 (01:10→23:57)
--- NOTE | 2020-02-09 07:56 | Discharge Summary ---
Providers - Providers Date of Admission: 02/06/20 23:58 Date of discharge: 02/09/20 (Pt stable for discharge home.) Attending physician: MG SANCHES 02/07/20 11:35 Consult to Digital Technician [CONS] Routine Reason For Exam: Primary care physician: MG SANCHES Hospitalization Reason for admission: active labor Delivery: Procedure: primary low transverse Episiotomy: none Laceration: none Incision: normal, dry, intact Other procedures: none complications: none Discharge diagnosis: IUP at term delivered [place] baby: female Pertinent studies: under bili lights. Per pt, will have redraw of billirubin sometime today. Spoke with Jessica BENITEZ and states that redraw is at noon, and is aware that discharge order will be placed for pt and that she can be discharged with when is cleared for discharge. Hospital course: S: Pt doing well. States ambulating, passing flatus, and voiding without difficulty. BC: Undecided. O: VSS. Fundus firm, minimal bleeding noted. H/H 10.5/31.6. Incision open to air, intact, no drainage noted. No s/sx of infection noted. A: 19 y.o. s/p primary low transverse d/t arrest of descent and dilatation. POD # 2, stable for discharge home. P: Discharge home with instructions. To schedule a post op incision check in 1 week. To schedule a visit check in 4 weeks. Condition at discharge: Good Disposition: DC-01 TO HOME OR SELFCARE Plan - Discharge Medications Prescriptions: Ferrous Sulfate [Feosol 325 MG tab] 325 mg PO BID #60 tablet - Provider Discharge Summary Activity: routine, no sex for 6 weeks, no heavy lifting 4 weeks, no strenuous exercise Diet: routine Instructions: routine Additional instructions: [] Smoking cessation referral if applicable(refer to patient education folder for contact #) [] Refer to [facility] Booklet Call your doctor immediately for: * Fever > 100.5 * Heavy vaginal bleeding ( >1 pad per hour) * Severe persistent headache * Shortness of breath * Reddened, hot, painful area to leg or breast * Drainage or odor from incision. * Keep incision clean and dry at all times and follow doctor's instructions regarding bathing/showering - Follow up plan Follow up: MG SANCHES MD [Primary Care Provider] - 7 Days (Congratulations!!! Please schedule a incision check in 1 week. Please schedule a visit in 4 weeks. If you have any questions or concerns, please do not hesitate to call the office. )
[2020-02-09] MEDS: PRENATAL VIT27-FE FUMARATE-FOLIC ACID VIT TAB PO SCH (09:23)
[2020-02-09] MEDS: IBUPROFEN 800 MG TAB PO PRN (09:23)
[2020-02-09] MEDS: FERROUS SULFATE 325 MG TAB PO SCH (09:23)
[2020-02-10] MEDS: HYDROcodone/ACETAMINOPHEN 5-325 MG TAB PO PRN ×3 (05:33→21:25)
--- NOTE | 2020-02-10 07:53 | Event Note ---
Date: 02/10/20 (Existing D/C order in place) POD#3. Pt sitting in bed quietly holding . No visible s/s of distress. Pt remains waiting for baby to be D/C home. Reports awaiting infant's recent bilirubin results to determine if baby can be d/c home. All questions addressed.
[2020-02-10] MEDS: FERROUS SULFATE 325 MG TAB PO SCH (11:40)
[2020-02-10] MEDS: PRENATAL VIT27-FE FUMARATE-FOLIC ACID VIT TAB PO SCH (11:40)
[2020-02-10] MEDS: ARFORMOTEROL 15 MCG/2 ML NEBU IH SCH (15:33)
[2020-02-10] MEDS: BUDESONIDE 0.5 MG/2 ML NEBU IH SCH (15:33)
[2020-02-10] MEDS: IBUPROFEN 800 MG TAB PO PRN (23:31)
[2020-02-11] MEDS: ARFORMOTEROL 15 MCG/2 ML NEBU IH SCH ×2 (01:23→09:54)
[2020-02-11] MEDS: BUDESONIDE 0.5 MG/2 ML NEBU IH SCH ×2 (01:23→09:55)
[2020-02-11 09:01] VITALS: BP 136/59
[2020-02-11] MEDS: PRENATAL VIT27-FE FUMARATE-FOLIC ACID VIT TAB PO SCH (10:48)
[2020-02-11] MEDS: FERROUS SULFATE 325 MG TAB PO SCH (10:48)
== END 2020-02-11 11:22 | disposition home or self-care (01) | DRG 766 ==
LOC: TRG 23:07 → APU 23:11 → TRG 23:58 → LD 23:58 → OB 02-07 11:32
PROVIDERS: ADMIT Obstetrics & Gynecology; ATTEND Obstetrics & Gynecology
PROC: 10D00Z1 Extraction of Products of Conception, Low, Open Approach (ICD-10-PCS; principal; 2020-02-06)
DX: O62.0 Primary inadequate contractions (principal); O77.0 Labor and delivery complicated by meconium in amniotic fluid; K21.9 Gastro-esophageal reflux disease without esophagitis; O99.62 Diseases of the digestive system complicating childbirth; O16.4 Unspecified maternal hypertension, complicating childbirth; O62.1 Secondary uterine inertia; Z3A.38 38 weeks gestation of pregnancy; Z37.0 Single live birth
CPT/HCPCS: 36415; 59025; 80307; 81001; 82565; 83615; 84450; 84460; 84550; 85014; 85018; 85027; 86850; 86900; 86901; 94640; G0378; J0690; J1100; J1885; J2405; J2590; J2765; J3010; J3105; J3490; J7120; J7121